=== PATIENT | female | born 1960 | race Caucasian/White ===

== ENCOUNTER → 2024-08-19 13:38 | Outpatient (REF) | payer BC, SELFPAY | LOC: RAD 13:38 | PROVIDERS: ATTENDING PHYSICIAN Emergency Medicine | DX: J06.9 Acute upper respiratory infection, unspecified (principal); R06.09 Other forms of dyspnea | CPT/HCPCS: 71046 ==

== ENCOUNTER 2025-03-16 11:07 | Emergency (ER) | payer BC, SELFPAY ==
[2025-03-16 11:16] VITALS: BP 157/82
[2025-03-16] MEDS: ROXICODONE 5 MG PO (13:32)
[2025-03-16] MEDS: DELTASONE 50 MG PO (13:32)
[2025-03-16] MEDS: TYLENOL 1000 MG PO (13:32)
[2025-03-16] MEDS: TORADOL 30 MG IM (13:33)
[2025-03-16] MEDS: LIDOCAINE 4% PATCH 1 PATCH TOPICAL (13:37)
--- NOTE | 2025-03-16 13:42 | ED.GENMED ---
History of Present Illness
General
Chief Complaint: Musculo-Skeletal Complaint
Source: patient and records
Exam Limitations: none
Time Seen by Provider: 03/16/25 13:15
Nursing documentation reviewed up to this point in time: agreed with
History of Present Illness
History of Present Illness:
64-year-old female with history as noted presents to the emergency room for evaluation of back pain. Patient reports onset of symptoms 5 days ago and have been constant since that time and have become quite severe and unmanageable which prompted ER
visit. She reports pain in the right low back that radiates towards the right hip and down the right leg. Worse with movement. No relieving factors noted�she said she has tried heat, ice, Tylenol, ibuprofen, Lidoderm patches without successful
control of her symptoms. She does have some paresthesias in the right leg but no weakness. Denies any symptoms in the left leg. Denies bowel or bladder incontinence or saddle anesthesia. She does note that she was doing some light weight lifting
and exercise bike work prior to onset of symptoms that she thinks may have triggered them. She says that she had very similar symptoms a few years ago for which she was seen in the emergency room and treated.
Past History
Past History
ED Past Medical History: Asthma and Other (Bronchitis, Fibroids,)
ED Past Surgical History: Appendectomy
Social History
Tobacco: Former smoker
Alcohol: Occasional
Personal:
Living: with family
Review of Systems
Review of Systems
All Other Systems: ROS reviewed and negative except as documented in HPI and ROS
Constitutional: Denies fever
Respiratory: Denies trouble breathing
Cardiac: Denies chest pain
ABD/GI: Denies abdominal pain
Musculoskeletal: Reports back pain; Denies neck pain
Neurological: Reports numbness (Paresthesias); Denies headache or weakness
Phy Exam
Physical Exam
Physical Exam:
General: Awake, alert, oriented x3; appears uncomfortable, pacing around the room
Head: Normocephalic, atraumatic
Eyes: Conjunctiva normal
Throat: Airway intact, handling secretions
Neck: Trachea midline
Lungs: Breathing comfortably without distress
Heart: Regular rate
Back: Patient has some tenderness in the right paraspinal musculature but no midline lumbar tenderness
Neuro: Cranial nerves grossly intact, speech fluid, motor intact in the legs bilaterally, subjective diminished sensation medial right thigh but otherwise sensory intact; she is ambulatory in the emergency room
Skin: no rash in area of concern
Extremities: No edema in extremities, equal pulses in all extremities
Scores
Heart Failure Risk
Heart Failure Risk Score: Not Applicable
Heart Score for Chest Pain Patients
STEMI patient?: Not applicable
Withdrawal Assessment of Alcohol
Withdrawal Assessment Completed?: Not applicable
Course
Orders/Labs/Results
Orders:
Orders
03/16/25 13:26
Ketorolac [Toradol] 30 mg IM NOW STA
Oxycodone [Roxicodone] 5 mg PO NOW STA
Prednisone [Deltasone] 50 mg PO NOW STA
CR Lumbar Spine 2 Or 3 Views Urgent
Comment:
Reason For Exam: low back pain
03/16/25 13:27
Acetaminophen [Tylenol] 1,000 mg PO NOW STA
Lidocaine [Lidocaine 4% Patch] 1 patch TOPICAL ONCE ONE
Apply Lidocaine patch(s) to:: low back
Vital Signs
Initial and Last Documented VS:
Initial Vital Signs
Temp Pulse Resp BP Pulse Ox
36.9 C 65 16 157/82 98
03/16/25 11:16 03/16/25 11:16 03/16/25 11:16 03/16/25 11:16 03/16/25 11:16
Last Documented Vital Signs
Temp Pulse Resp BP Pulse Ox
36.9 C 65 16 157/82 98
03/16/25 11:16 03/16/25 14:28 03/16/25 14:28 03/16/25 11:16 03/16/25 14:28
MDM/Problems Addressed
Differential Diagnosis Includes:
Lumbar compression fracture, bulging/herniated disc with sciatica, degenerative disease, myofascial strain
MDM/Problems Addressed:
64-year-old female presents for evaluation of right low back pain that radiates down the right leg. She says that she was doing some light weight lifting and exercise bike work prior to onset. Similar symptoms she had in the past with sciatica.
Hypertensive otherwise normal vitals. Physical exam as above. Suspect likely lumbosacral radiculopathy either related to degenerative disease or possibly bulging disc given her recent weight lifting. Will check x-ray to rule out signs of
compression fracture. She has no red flag symptoms or exam findings to suggest cauda equina or other spinal emergency and in my judgment no indication for emergent MRI. Will plan to treat symptomatically and will reassess after the above.
X-ray reviewed by me shows degenerative disease but no acute compression fracture noted. Patient had some improvement with treatment here in the emergency room. Stable for discharge with supportive care�will prescribe short-term pain control,
queried PDMP and no red flags noted. Follow-up with primary care physician. Spoke about return precautions all questions answered.
Acute Exacerbation and/or Progression of Chronic Illness:
Acutely hypertensive likely pain related�will treat pain but no indication for emergent antihypertensive treatment
Acute Exacerbation and/or Progression of Chronic Illness: HTN
*Radiology
Radiology exam reviewed: preliminary read by ED provider
*Pulse Oximetry
SaO2: 98
Oxygen Mode of Delivery: Room air
Patient hypoxic: no (98%)
*Critical Care Note
Total Time (30-74mins, 75-104mins- exclusive of procedures): Not Applicable
Data Reviewed
Source: patient and records
Further Testing Considered But Not Given:
Considered to the need for an MRI as above
ED Attending Note
-
Portions of this chart may have been created with voice recognition software.� Occasional wrong word or��sound alike� substitutions may have occurred due to the inherent limitations of voice recognition software.
Discharge Plan
Departure
Patient Disposition: Home (Routine Discharge)
Date of Disposition: 03/16/25
Time of Disposition: 14:53
Patient with high blood pressure during this ER visit?: Yes
Discharge Problem:
Acute low back pain with sciatica
Instructions: Exercises for sciatic pain, Low back pain - ED discharge instructions, Sciatica - ED discharge instructions
Prescriptions:
New
prednisone 10 mg Tablet
See Rx Instructions .ROUTE .COMPLEX Qty: 45 0RF
Rx Instructions:
Take By Mouth:
50 mg daily x3 days, 40 mg daily x3 days,
30 mg daily x3 days, 20 mg daily x3 days,
10 mg daily x3 days
oxycodone 5 mg tablet
5 mg PO Q6H PRN (Reason: Pain) Qty: 14 0RF
lidocaine 5 % adhesive patch,medicated
1 patch topical DAILY Qty: 30 0RF
No Action
azithromycin [Zithromax] 250 MG tablet
250 mg PO UD Qty: 1 0RF
prednisone 20 MG tablet
40 mg PO DAILY Qty: 10 0RF
diclofenac sodium 75 mg tablet,delayed release (DR/EC)
75 mg PO BID Qty: 20 0RF
methocarbamol 750 mg tablet
750 - 1,500 mg PO Q8H Qty: 20 0RF
oxycodone 5 mg tablet
5 mg PO Q8H PRN (Reason: pain) Qty: 6 0RF
Referrals:
Heraclio Evangelista DO [Family Provider, Family Practice] - Call in 1-3 days for appt
Activity Restrictions/Additional Instructions:
Thank you for visiting the Emergency Department at [facility].
1. Please schedule a follow up appointment as directed. Call first thing tomorrow morning to make an appointment.
2. If indicated, please take your medications as instructed and indicated on discharge paperwork.
3. If any of your symptoms do not improve, or persist, or become more severe within 6-12 hours, please return to the emergency department for further care.
4. Please return to the emergency department if you develop a headache, neck pain/stiffness, fever greater than 100.4F, chest pain, shortness of breath, persistent nausea, vomiting, slurred speech, difficulty walking, numbness/tingling, weakness,
signs of infection or any other symptoms that are worrisome to you.
Please call [phone] if you have any questions.
Interventions
Interventions:
*Risk Screen - Suicide Last Done: 03/16/25 11:16
*General Assessment Last Done: 03/16/25 12:49
*Neglect/Abuse Screening Last Done: 03/16/25 11:16
*ED- Fall Risk Assessment Last Done: 03/16/25 12:49
*ED COVID-19 Vaccine History Last Done: 03/16/25 12:49
ED-Musculoskeletal Assessment Last Done: 03/16/25 12:49
Discharge Date and Time
Print Language: BANGLADESHI
== END 2025-03-16 15:19 | disposition home or self-care (01) ==
LOC: EMR 11:07
PROVIDERS: EMERGENCY PHYSICIAN Emergency Medicine; FAMILY PHYSICIAN Family Medicine
DX: M54.41 Lumbago with sciatica, right side (principal); J45.909 Unspecified asthma, uncomplicated; Z87.891 Personal history of nicotine dependence; I10 Essential (primary) hypertension
CPT/HCPCS: 96372; 99284; 72100